=== PATIENT | male | born 1940 | race Caucasian/White ===

== ENCOUNTER → 2023-11-13 16:08 | Outpatient (REF) | payer MEDICARE, OTHER, SELFPAY | LOC: RAD 16:08 | PROVIDERS: ATTENDING PHYSICIAN Family Medicine | DX: M25.511 Pain in right shoulder (principal); M79.662 Pain in left lower leg | CPT/HCPCS: 73030; 73590 ==

== ENCOUNTER → 2023-12-15 12:27 | Outpatient (REF) | payer MEDICARE, OTHER, SELFPAY | LOC: WOUND 12:27 | PROVIDERS: ATTENDING PHYSICIAN Surgery; FAMILY PHYSICIAN Family Medicine | DX: L97.222 Non-pressure chronic ulcer of left calf with fat layer exposed (principal); I87.2 Venous insufficiency (chronic) (peripheral); I10 Essential (primary) hypertension | CPT/HCPCS: 11042; 99204 ==

== ENCOUNTER → 2023-12-23 11:05 | Outpatient (REF) | payer MEDICARE, OTHER, SELFPAY | LOC: PAVMRI 11:05 | PROVIDERS: ATTENDING PHYSICIAN Family Medicine | DX: M25.511 Pain in right shoulder (principal) | CPT/HCPCS: 73221 ==

== ENCOUNTER → 2023-12-25 14:51 | Outpatient (REF) | payer MEDICARE, OTHER, SELFPAY | LOC: WOUND 14:51 | PROVIDERS: ATTENDING PHYSICIAN Surgery | DX: L97.222 Non-pressure chronic ulcer of left calf with fat layer exposed (principal); I87.2 Venous insufficiency (chronic) (peripheral); I10 Essential (primary) hypertension | CPT/HCPCS: 11042 ==

== ENCOUNTER → 2024-01-01 14:44 | Outpatient (REF) | payer MEDICARE, OTHER, SELFPAY | LOC: WOUND 14:44 | PROVIDERS: ATTENDING PHYSICIAN Surgery | DX: L97.222 Non-pressure chronic ulcer of left calf with fat layer exposed (principal); I87.2 Venous insufficiency (chronic) (peripheral); I10 Essential (primary) hypertension | CPT/HCPCS: 99213 ==

== ENCOUNTER → 2024-01-06 17:31 | Outpatient (REF) | payer MEDICARE, OTHER, SELFPAY | LOC: RCS 17:31 | PROVIDERS: ATTENDING PHYSICIAN Internal Medicine Cardiovascular Disease; FAMILY PHYSICIAN Family Medicine | DX: I10 Essential (primary) hypertension (principal); I34.0 Nonrheumatic mitral (valve) insufficiency; I35.1 Nonrheumatic aortic (valve) insufficiency | CPT/HCPCS: 93306 ==

== ENCOUNTER → 2024-01-09 13:18 | Outpatient (REF) | payer MEDICARE, OTHER, SELFPAY | LOC: WOUND 13:18 | PROVIDERS: ATTENDING PHYSICIAN Surgery; FAMILY PHYSICIAN Family Medicine | DX: L97.222 Non-pressure chronic ulcer of left calf with fat layer exposed (principal); I87.2 Venous insufficiency (chronic) (peripheral); I10 Essential (primary) hypertension | CPT/HCPCS: 11042 ==

== ENCOUNTER → 2024-01-15 14:40 | Outpatient (REF) | payer MEDICARE, OTHER, SELFPAY | LOC: WOUND 14:40 | PROVIDERS: ATTENDING PHYSICIAN Surgery; FAMILY PHYSICIAN Family Medicine | DX: L97.222 Non-pressure chronic ulcer of left calf with fat layer exposed (principal); I87.2 Venous insufficiency (chronic) (peripheral); I10 Essential (primary) hypertension | CPT/HCPCS: 11042 ==

== ENCOUNTER → 2024-01-26 10:16 | Outpatient (REF) | payer MEDICARE, OTHER, SELFPAY | LOC: WOUND 10:16 | PROVIDERS: ATTENDING PHYSICIAN Surgery | DX: L97.222 Non-pressure chronic ulcer of left calf with fat layer exposed (principal); I87.2 Venous insufficiency (chronic) (peripheral); I10 Essential (primary) hypertension | CPT/HCPCS: 99213 ==

== ENCOUNTER → 2024-02-05 13:43 | Outpatient (REF) | payer MEDICARE, OTHER, SELFPAY | LOC: RAD 13:43 | PROVIDERS: ATTENDING PHYSICIAN Surgery; FAMILY PHYSICIAN Family Medicine | DX: L97.222 Non-pressure chronic ulcer of left calf with fat layer exposed (principal); I87.2 Venous insufficiency (chronic) (peripheral) | CPT/HCPCS: 93971 ==

== ENCOUNTER → 2024-02-10 10:13 | Outpatient (REF) | payer MEDICARE, OTHER, SELFPAY | LOC: WOUND 10:13 | PROVIDERS: ATTENDING PHYSICIAN Surgery; FAMILY PHYSICIAN Family Medicine | DX: L97.222 Non-pressure chronic ulcer of left calf with fat layer exposed (principal); I87.2 Venous insufficiency (chronic) (peripheral); I10 Essential (primary) hypertension | CPT/HCPCS: 99212 ==

== ENCOUNTER → 2024-09-13 12:50 | Outpatient (REF) | payer MEDICARE, OTHER, SELFPAY | LOC: RAD 12:50 | PROVIDERS: ATTENDING PHYSICIAN Family Medicine | DX: S82.202A Unspecified fracture of shaft of left tibia, initial encounter for closed fracture (principal) | CPT/HCPCS: 73590 ==

== ENCOUNTER → 2024-10-20 15:47 | Outpatient (REF) | payer MEDICARE, OTHER, SELFPAY | LOC: RCS 15:47 | PROVIDERS: ATTENDING PHYSICIAN Internal Medicine Cardiovascular Disease; FAMILY PHYSICIAN Family Medicine | DX: I35.0 Nonrheumatic aortic (valve) stenosis (principal) | CPT/HCPCS: 93306 ==

== ENCOUNTER 2025-01-02 16:10 | Emergency (ER) | payer MEDICARE, OTHER, SELFPAY ==
[2025-01-02 16:15] VITALS: BP 119/52
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
[2025-01-02] MEDS: SUBLIMAZE 50 MCG IV (16:51)
[2025-01-02 16:56] VITALS: BMI 25.3
[2025-01-02 16:57] VITALS: BP 125/53
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
[2025-01-02] MEDS: OMNIPAQUE 25 ML PO (17:06)
[2025-01-02 17:13] LABS: Hematocrit 35.3 % (39.0-52.0); Hemoglobin 11.8 g/dL (13.0-18.0); Mean Corp Hgb Conc. 33.4 g/dL (33.0-37.0); Mean Corpuscular Volume 90.5 fL (80.0-94.0); Nucleated Red Blood Cells % 0 % (-); Platelet Count 183 10^3/uL (130-400); Red Cell Dist. Width 13.8 % (11.5-14.5)
[2025-01-02 17:37] LABS: ALT (SGPT) 37 U/L (0-50); AST (SGOT) 49 U/L (17-59); Albumin 4.4 g/dl (3.5-5.0); Alkaline Phosphatase 57 U/L (38-126); Blood Urea Nitrogen 34 mg/dl (9-20); Calcium 9.0 mg/dl (8.4-10.2); Carbon Dioxide 22 mmol/L (22-30); Chloride 106 mmol/L (98-107); Estimated Creatinine Clearance 37 ml/min; Glucose 150 mg/dl (70-99); Potassium 4.9 mmol/L (3.5-5.1); Sodium 136 mmol/L (135-145); Total Protein 6.7 g/dl (6.3-8.2); eGFR 41.96
[2025-01-02] MEDS: DILAUDID 0.5 MG IV ×2 (17:45→20:24)
[2025-01-02 18:00] VITALS: BP 131/58
--- NOTE | 2025-01-02 18:30 | EDRN ---
R head abrasion was cleansed w/ saline and double antibiotic ointment applied. R upper arm avulsion found that was slightly deep and 8 cm long just above elbow was extensively cleansed w/ saline. R lower forearm skintear avulsions about 3 were
cleansed w/ saline.
--- NOTE | 2025-01-02 19:00 | EDRN ---
Last tetanus according to tetanus card was 2108.
--- NOTE | 2025-01-02 19:01 | EDRN ---
Pt has history of A Fib and will be off his blood thinner so EKG to be done and pt placed on residential monitor,
[2025-01-02] MEDS: ADACEL 0.5 ML IM (19:05)
[2025-01-02 19:55] LABS: Urine Character Clear (Clear)
[2025-01-02 20:02] LABS: Urine Red Blood Cell 0-2 /HPF (0-2); Urine White Cell 0-2 /HPF (0-5)
== END 2025-01-02 20:53 | disposition short-term general hospital (02) ==
LOC: EMR 16:10
PROVIDERS: Physician Assistant; EMERGENCY PHYSICIAN Emergency Medicine; FAMILY PHYSICIAN Family Medicine
DX: S22.41XA Multiple fractures of ribs, right side, initial encounter for closed fracture (principal); S42.031A Displaced fracture of lateral end of right clavicle, initial encounter for closed fracture; S42.123A Displaced fracture of acromial process, unspecified shoulder, initial encounter for closed fracture; V18.4XXA Pedal cycle driver injured in noncollision transport accident in traffic accident, initial encounter; Z23 Encounter for immunization; I10 Essential (primary) hypertension; E78.00 Pure hypercholesterolemia, unspecified; I48.91 Unspecified atrial fibrillation; Y93.55 Activity, bike riding; Z79.01 Long term (current) use of anticoagulants
CPT/HCPCS: 99284; 12001; 96374; 96375; 96376; 90471; 70450; 71260; 72125; 74177; 80053; 81003; 81015; 85025; 90715; 93005; Q9967

== ENCOUNTER → 2025-03-01 07:59 | Outpatient (REF) | payer MEDICARE, OTHER, SELFPAY | LOC: RAD 07:59 | PROVIDERS: ATTENDING PHYSICIAN Nurse Practitioner Family; FAMILY PHYSICIAN Family Medicine | DX: I63.9 Cerebral infarction, unspecified (principal) | CPT/HCPCS: 70496; 70498; Q9967 ==